=== PATIENT | female | born 1980 | race Caucasian/White ===

== ENCOUNTER 2017-09-26 14:37 | Inpatient (IN) | payer BC ==
[~2017-09-26] VITALS: Ht 152.4 cm; Wt 43.1 kg
[2017-09-26 14:38] VITALS: Ht 152.4 cm; Wt 43.1 kg
[2017-09-26 15:44] LABS: AMPHETAMINE QUAL UR NONE DETECTED (NEG <=1000)
[2017-09-26] MEDS ORDERED: CHANTIX STARTING1 MG PO (16:06)
[2017-09-26] MEDS ORDERED: KLONOPIN1 MG PO (16:07)
[2017-09-26] MEDS ORDERED: PROZ20 PO (16:08)
[2017-09-26 16:20] LABS: BASOPHIL % 0.1 % (0-2); PLATELET COUNT 261 x10^3mcL (130-400); RED CELL DISTRIBUTION WIDTH 13.6 % (11.5-14.5)
[2017-09-26 16:34] LABS: CALCIUM 8.9 mg/dL (8.5-10.1); CHLORIDE SERUM 99 mmol/L (98-107); CREATININE SERUM 0.7 mg/dL (0.6-1.0); GFR1 > 60 mL/min; GLUCOSE SERUM 96 mg/dL (74-106); POTASSIUM SERUM 3.5 mmol/L (3.5-5.1); SODIUM SERUM 136 mmol/L (136-145)
[2017-09-26 16:37] LABS: ALBUMIN 4.1 g/dL (3.4-5.0); ALKALINE PHOSPHATASE 77 U/L (46-116); ALT/SGPT 29 U/L (14-59); AST/SGOT 30 U/L (15-37); BILIRUBIN TOTAL 1.3 mg/dL (0.20-1.00); TOTAL PROTEIN, SERUM 8.1 g/dL (6.4-8.2)
[2017-09-26 17:19] LABS: T3 TOTAL 1.39 ng/mL
[2017-09-26 18:11] LABS: FREE T4 1.22 ng/dL (0.76-1.46); FREE THYROXINE INDEX 3.5 ug/dL (1.4-4.5); T4(THYROXINE) 9.8 ug/dL (4.7-13.3)
[2017-09-26 19:15] LABS: CHOLESTEROL/HDL RATIO 2.5; MAGNESIUM 1.8 mg/dL (1.8-2.4); PHOSPHOROUS 1.6 mg/dL (2.5-4.9)
[2017-09-26 19:38] VITALS: BP 136/75
[2017-09-26 20:40] LABS: microscopic required? YES; urine erythrocyte 1+ (NEGATIVE)
[2017-09-27 05:29] VITALS: BP 117/76
[2017-09-27 06:37] LABS: BASOPHIL % 0.3 % (0-2); PLATELET COUNT 211 x10^3mcL (130-400); RED CELL DISTRIBUTION WIDTH 13.8 % (11.5-14.5)
[2017-09-27 07:02] LABS: CALCIUM 7.5 mg/dL (8.5-10.1); CHLORIDE SERUM 105 mmol/L (98-107); CREATININE SERUM 0.5 mg/dL (0.6-1.0); GFR1 > 60 mL/min; GLUCOSE SERUM 81 mg/dL (74-106); MAGNESIUM 2.1 mg/dL (1.8-2.4); PHOSPHOROUS 2.5 mg/dL (2.5-4.9); POTASSIUM SERUM 3.6 mmol/L (3.5-5.1); SODIUM SERUM 142 mmol/L (136-145)
[2017-09-27 09:43] VITALS: BP 122/82
[2017-09-27 12:22] VITALS: BP 108/70
[2017-09-27] MEDS ORDERED: LIB25 PO (17:15)
[2017-09-27] MEDS ORDERED: CLA10 PO (17:15)
[2017-09-27] MEDS ORDERED: THERAGRAN-M1 TA4 PO (17:17)
[2017-09-27] MEDS ORDERED: THI100 PO (17:17)
[2017-09-27] MEDS ORDERED: FOL1 PO (17:17)
[2017-09-27 18:29] VITALS: BP 108/70
== END 2017-09-27 19:46 | disposition home or self-care (01) | DRG 441 ==
LOC: ED 14:37 → DU 15:58
PROVIDERS: Emergency Medicine; Student in an Organized Health Care Education/Training Program
DX: K72.90 Hepatic failure, unspecified without coma (principal); G92 Toxic encephalopathy; N17.0 Acute kidney failure with tubular necrosis; F10.239 Alcohol dependence with withdrawal, unspecified; F33.1 Major depressive disorder, recurrent, moderate; F41.9 Anxiety disorder, unspecified; K70.30 Alcoholic cirrhosis of liver without ascites; J44.9 Chronic obstructive pulmonary disease, unspecified; F10.229 Alcohol dependence with intoxication, unspecified; J30.9 Allergic rhinitis, unspecified; Z91.040 Latex allergy status; Z91.048 Other nonmedicinal substance allergy status; Z80.9 Family history of malignant neoplasm, unspecified
CPT/HCPCS: 83880; 84439; G0480; J2060; J3490; J7030; Q0092